=== PATIENT | female | born 1995 | race Caucasian/White ===

== ENCOUNTER 2022-06-16 20:31 | Emergency (ER) | payer BC ==
[2022-06-16 23:29] LABS: ESTIMATED GFR 91 mL/min (>60)
== END 2022-06-17 01:04 | disposition home or self-care (01) ==
LOC: FB.ED 20:31
DX: R20.8 Other disturbances of skin sensation (principal); M79.621 Pain in right upper arm; M79.661 Pain in right lower leg
CPT/HCPCS: 36415; 70450; 80048; 81025; 85651; 86140; 99283; 99284